=== PATIENT | male | born 1995 | race Two or more races ===

== ENCOUNTER 2024-06-26 03:31 | Emergency (ER) | payer MEDICAID, SELFPAY ==
[2024-06-26 03:32] VITALS: BMI 30.4
[2024-06-26 03:39] VITALS: BP 124/76; PULSE 69; RESP 18; TEMP 36.6; O2SAT 96
--- NOTE | 2024-06-26 03:47 | EDNOTE_ITS ---
ED Abdominal Pain RME/HPI General Chief Complaint: Abdominal Pain Stated complaint: ABD PAIN Time seen by provider: 06/26/24 03:37 Arrival date/time: 06/26/24 03:31 RME / HPI RME / HPI narrative: This section includes all my notes and documentations, including HPI, PE, and ED course. Brian Ramos MD HPI: 28yo male with no significant past medical history presents to the ED for complaints of epigastric and RUQ pain. Patient states he woke up having abdominal pain at 0130 few hours ago, reporting it's been progressively getting worse, so he came in for evaluation. Patient reports associated nausea and vomiting. He denies any diarrhea, fever, chills, dysuria or any other associated symptoms. His last bowel movement was at 2100 last night. He is not on any daily medications. No abdominal PSH. Patient denies any history of similar symptoms. No other complaints reported. ROS: All negative except as documented in HPI. Physical Exam: General: Alert and oriented. No acute distress when remaining still. Eyes: Conjunctivae and lids clear. ENT: No nasal congestion. Neck: Supple. Heart: RRR. Lungs: No respiratory distress. Good air movement. No rhonchi, wheezing, rales. Abdomen: Soft. Epigastric and RUQ tenderness. Normal bowel sounds. No distension. No rebound or guarding. Back: No CVA tenderness. Skin: Warm and dry. Neuro: Alert and oriented X 3. I reviewed all diagnostic test results. My review of the gallbladder US report is cholelithiasis, no signs of cholecystitis. Blood tests unremarkable. At this point, diagnoses include gastritis and cholelithiasis. Treatment here included Zofran and famotidine and Protonix. He felt much better. Recommended outpatient care. Based on my best medical judgment, made decision no further evaluation or treatment indicated at this time. Patient understands and agrees to the discharge instructions customized and printed, see below. Discharge instructions from Dr. Ramos: ?After evaluation, your symptoms are due to stomach ulcer (see attached handout) and gallstones..? There is no emergency such as appendicitis needing emergent surgery. See attached handouts. ?To help heal the ulcer, take Omeprazole 40 mg every morning and Famotidine 40 mg for a week then as needed. ?Zofran for nausea/vomiting.? Clear liquid diet for 24 hours.? Then slowly advance diet as tolerated. ?Avoid food and beverages that can trigger and worsen ulcers.? See attached handout. ?See a private doctor on 06/28/24. To make sure there is no serious intra-abdominal condition, ask for help with more investigation not available here in the ER.? Such as EGD or scoping the stomach, colonoscopy or scoping the colon, and referral to see agency service representative. Ask for help seeing a surgeon to discuss elective surgery. ?Seek immediate medical care with worsening or with any concerns. Brian Ramos MD Related Data Previous Rx's ?Medication ?Instructions ?Recorded Acetaminophen ER * (TYLENOL ER *) 650 mg PO Q8HR PRN P AIN ##30 03/05/17 cephalexin 500 mg capsule (Keflex) 1 cap PO QID #40 ca ps 03/05/17 ibuprofen 600 mg tablet 600 mg PO Q6HR PRN PAIN #30 tabs 03/05/17 azithromycin 250 mg tablet See Rx Instructions PO .COM PLEX #6 01/26/23 (Zithromax) tabs cetirizine 10 mg tablet 10 mg PO QDAY #30 tabs 01/26 loratadine 10 mg tablet 10 mg PO QDAY #30 tabs 07/05 ibuprofen 800 mg tablet 800 mg PO TID PRN pain #30 t abs 07/22/23 famotidine 40 mg tablet 40 mg PO .bedtime #30 tabs 0 06/26/24 omeprazole 40 mg capsule,delayed 40 mg PO QDAY #30 cap s 06/26/24 release ondansetron 4 mg disintegrating 4 mg PO TID PRN nausea and 06/26/24 tablet vomiting 30 days #10 tabs Allergies Allergy/AdvReac Type Severity Reaction Status Date / Time No Known Allergies Allergy Verified 01/26/23 08:18 Review of Systems Review of Systems Systems Reviewed: All systems reviewed, normal except as documented Past Medical History Past Medical History CARDIAC: Negative Congestive Heart Failure RESPIRATORY: Negative Chronic Obstructive Pulmonary Disease (COPD) GENITOURINARY: Negative Renal Disease ENDOCRINE: Negative Diabetes Mellitus Type 1 or Diabetes Mellitus Type 2 Social History SMOKING STATUS: Never smoker ED Exam Narrative Physical exam: As noted in HPI. Course Quality Measures none Orders Category Date Time Status gall bladder Stat Exams 06/26/24 03:48 Completed Amylase Stat Lab 06/26/24 03:55 Completed Bilirubin,Direct Stat Lab 06/26/24 03:55 Completed CBC Stat Lab 06/26/24 03:55 Completed CMP [Comprehensive Metabolic Panel] Stat Lab 06/26/24 03:55 Completed Lipase Stat Lab 06/26/24 03:55 Completed Magnesium Stat Lab 06/26/24 03:55 Completed Famotidine [Pepcid] Med 06/26/24 03:47 Discontinued 40 mg PO X1 ONE Ondansetron Odt [Zofran Odt] Med 06/26/24 03:47 Discontinued 4 mg PO X1 ONE Pantoprazole [Protonix] Med 06/26/24 03:47 Discontinued 40 mg PO X1 ONE Vital Signs Vital signs: Vital Signs Temperature 97.9 F 06/26/24 03:39 Pulse Rate 69 06/26/24 03:39 Respiratory Rate 18 06/26/24 03:39 Blood Pressure 124/76 06/26/24 03:39 Pulse Oximetry (%) 96 06/26/24 03:39 Oxygen Delivery Method Room Air 06/26/24 03:39 Abdominal Pain MDM MDM Narrative MDM Narrative:: Scribe Attestation: 06/26/24 - Estefanía Simpson am scribing for and in the presence of Dr. Ramos. 28yo male with no significant past medical history presents to the ED for complaints of epigastric and RUQ pain. Patient states he woke up having abdominal pain at 0130, reporting it's been progressively getting worse, so he came in for evaluation. Patient reports associated nausea and vomiting. He denies any diarrhea, fever, chills, dysuria or any other associated symptoms. His last bowel movement was at 2100. He is not on any daily medications. No abdominal PSH. Patient denies any history of similar symptoms. No other complaints reported. Patient data External records reviewed:: [facility] previous records (Per chart review, patient has no relevant previous ED visits.) Clinical information provided by:: patient Social determinants that could affect healthcare access:: none Patient has the following chronic illnesses:: none How is presenting disease/condition affected by chronic disease/condition?: no chronic disease Evaluation data The following diagnostics were reviewed and interpreted by me:: lab results and radiology exam(s) Lab and/or radiology exams considered but not ordered:: none Interpretation Summary: Gastritis and cholelithiasis Medications / Prescriptions Medications or Prescriptions considered but not ordered:: none Medication administrations:: Medication Administration History Discontinued Medications Famotidine (Famotidine 20 Mg Tablet) 40 mg PO X1 ONE Stop: 06/26/24 03:48 Last Admin: 06/26/24 03:59 Dose: 40 mg Documented By: NING Ondansetron HCl (Ondansetron Odt 4 Mg Tabrap) 4 mg PO X1 ONE; Protocol Stop: 06/26/24 03:48 Last Admin: 06/26/24 03:59 Dose: 4 mg Documented By: NING Pantoprazole Sodium (Pantoprazole 40 Mg Tablet) 40 mg PO X1 ONE Stop: 06/26/24 03:48 Last Admin: 06/26/24 03:59 Dose: 40 mg Documented By: NING Zoavel and famotidine and Protonix Consultations Consultation(s) initiated? (list below): No Diagnosis Differential diagnosis abdominal pain: acute appendicitis, calculus of kidney, constipation, diverticulitis, endometriosis, gastroenteritis, pancreatitis, small bowel obstruction and other (GERD, gastritis, PUD, biliary colic) Most likely diagnosis given after review of the tests above:: Gastritis and barely colic Admission Indicated Admission indicated?: not indicated Explain why admission is indicated or not indicated:: With significant improvement, there was no indication for admission. Admission Request Was there a request for admission?: No Disposition Plan Disposition Plan: Discharge Discharge Attestation Discharge Attestation: The patient and all family members were given an opportunity to ask questions and understood the discharge instructions. Discharge instructions specifically effects, indications for sooner follow up or return to the emergency department, and the expected course of current diagnosis. Patient condition: Stable Discharge Plan Plan Patient Disposition: HOME (Self Care) Prescriptions/Referrals Prescriptions/Med Rec: New famotidine 40 mg tablet 40 mg PO .bedtime Qty: 30 0RF omeprazole 40 mg capsule,delayed release(DR/EC) 40 mg PO QDAY Qty: 30 0RF ondansetron 4 mg tablet,disintegrating 4 mg PO TID PRN (Reason: nausea and vomiting) 30 Days Qty: 10 0RF No Action Acetaminophen ER * (TYLENOL ER *) 650 MG TABLET.ER 650 mg PO Q8HR PRN (Reason: PAIN) Qty: 30 0RF cephalexin [Keflex] 500 MG capsule 1 cap PO QID Qty: 40 0RF ibuprofen 600 MG tablet 600 mg PO Q6HR PRN (Reason: PAIN) Qty: 30 0RF loratadine 10 mg tablet 10 mg PO QDAY Qty: 30 0RF ibuprofen 800 mg tablet 800 mg PO TID PRN (Reason: pain) Qty: 30 0RF cetirizine 10 mg tablet 10 mg PO QDAY Qty: 30 0RF azithromycin [Zithromax] 250 mg tablet See Rx Instructions .ROUTE .COMPLEX Qty: 6 0RF Rx Instructions: For 250 mg dose pack: take 500 mg today (day 1), then 250 mg for 4 days (days 2-5) Referrals: Herminio Green MD [Primary Care Provider] - In 1 week Problem List Clinical Impression: Stomach ulcer Patient/Caregiver Discharge Instructions Discharge Activity: activity as tolerated Education Materials: ED PEPTIC ULCER vs GASTRITIS Additional Instructions: Discharge instructions from Dr. Ramos: ?After evaluation, your symptoms are due to stomach ulcer (see attached handout) and gallstones..? There is no emergency such as appendicitis needing emergent surgery. See attached handouts. ?To help heal the ulcer, take Omeprazole 40 mg every morning and Famotidine 40 mg for a week then as needed. ?Zofran for nausea/vomiting.? Clear liquid diet for 24 hours.? Then slowly advance diet as tolerated. ?Avoid food and beverages that can trigger and worsen ulcers.? See attached handout. ?See a private doctor on 06/28/24. To make sure there is no serious intra-abdominal condition, ask for help with more investigation not available here in the ER.? Such as EGD or scoping the stomach, colonoscopy or scoping the colon, and referral to see agency service representative. Ask for help seeing a surgeon to discuss elective surgery. ?Seek immediate medical care with worsening or with any concerns. Print Language: Swedish Stand Alone Forms: [facility] Award Info., Patient Portal Info Letter
--- NOTE | 2024-06-26 03:48 | XR_ITS ---
Examination: Abdomen sonogram, Limited Date and time of exam: June 26, 2024 0458 hrs. Indications: Onset right upper abdominal pain today Technique: Real-time persaud scale transabdominal sonographic images of the upper abdomen obtained. Findings: Multiple gallstones Normal gallbladder wall Normal common bile duct 0.5 cm Pancreatic head 2.6 cm Liver 15.5 cm no focal liver lesions Normal hepatopedal portal venous flow Patent IVC Impression: Cholelithiasis, negative for cholecystitis Normal common bile duct
[2024-06-26] MEDS: ONDANSETRON ODT 4 MG TABRAP PO (03:59)
[2024-06-26] MEDS: FAMOTIDINE 20 MG TABLET 40 MG PO (03:59)
[2024-06-26] MEDS: PANTOPRAZOLE 40 MG TABLET PO (03:59)
[2024-06-26 04:53] LABS: Basophils # (Auto) 0.1 Thou/mm3 (0.0-0.2); Basophils % (Auto) 1 % (0-2.5); Eosinophils # (Auto) 0.2 Thou/mm3 (0.0-0.5); Eosinophils % (Auto) 1 % (0-10); Hematocrit 44.6 % (41.0-53.0); Hemoglobin 15.5 g/dL (13.5-16.0); Immature Granulocytes % (Auto) 0 % (0-0); Immature Granulocytes Auto 0.03 Thou/mm3 (0.00-0.00); Lymphocytes # (Auto) 2.5 Thou/mm3 (1.0-4.8); Lymphocytes % (Auto) 20 % (10-50); Mean Corpuscular HGB Conc 34.8 g/dl (31.0-37.0); Mean Corpuscular Hemoglobin 29.8 pg (25.0-35.0); Mean Corpuscular Volume 86 fL (80-100); Monocytes # (Auto) 0.7 Thou/mm3 (0.0-0.8); Monocytes % (Auto) 6 % (0-12); Neutrophils # (Auto) 8.7 Thou/mm3 (1.8-7.7); Neutrophils % (Auto) 72 % (37-80); Nucleated Red Blood Cell % 0 /100 WBC (0); Platelet Count 179 Thou/mm3 (140-440); RDW Standard Deviation 39.9 fL (35.1-43.9); White Blood Count 12.1 Thou/mm3 (3.8-10.6)
[2024-06-26 05:08] LABS: Alanine Aminotransferase 17 U/L (10-49); Albumin, Serum 4.9 gm/dL (3.5-5.0); Alkaline Phosphatase 73 U/L (46-116); Amylase 102 U/L (30-118); Anion Gap 6 (7-16); Aspartate Amino Transferase 21 U/L (0-34); BUN/Creatinine Ratio 21 Ratio (12-20); Bilirubin,Direct 0.2 mg/dL (0.0-0.3); Bilirubin,Total 0.8 mg/dL (0.3-1.2); Blood Urea Nitrogen 17 mg/dL (9-23); Calcium 9.6 mg/dL (8.3-10.6); Calcium (Corrected) 9.6 mg/dL (8.5-10.1); Carbon Dioxide 30.7 mMol/L (20.0-31.0); Chloride 107 mMol/L (98-107); Creatinine (Component) 0.8 mg/dL (0.6-1.3); Estimated Creatinine Clearance 151.7 mL/min (>60); Globulin 2.4 gm/dL (2.3-3.5); Glucose 86 mg/dL (74-106); Lipase 82 U/L (12-53); Magnesium 1.8 mg/dL (1.6-2.6); Osmolality,Calculated 287 (275-295); Potassium 3.9 mMol/L (3.4-5.1); Sodium 144 mMol/L (136-145); Total Protein 7.3 gm/dL (5.7-8.2); eGFR > 60 See Note
[2024-06-26 05:52] VITALS: BP 138/84; PULSE 70; RESP 18; TEMP 36.3; O2SAT 96
--- NOTE | 2024-06-26 06:31 | PRELIM_ITS ---
Ultrasound Abdomen. June 26, 2024 0458 hours Clinical history: RUQ tenderness Technique: Grayscale and color flow images of the abdomen are provided. Hepatic and portal veins were also imaged with color flow images. Comparison: No prior study is available for comparison. Findings: The liver is normal in echogenicity. No intrahepatic biliary ductal dilatation. Multiple stones within the gallbladder. No gallbladder wall thickening or pericholecystic fluid is demonstrated. The common bile duct is normal in caliber at 4.9 mm. No free fluid is demonstrated on the submitted images. The pancreas is unremarkable to the extent visualized. The inferior vena cava to the extent visualized is within normal limits. Impression: Cholelithiasis without evidence of acute cholecystitis. Report Electronically Signed By: Jayesh Mckenzie 06/26/2024 6:31:12 AM [EST]
== END 2024-06-26 05:55 | disposition home or self-care (01) ==
PROVIDERS: Emergency Provider Emergency Medicine; PCP Family Medicine
DX: K25.9 Gastric ulcer, unspecified as acute or chronic, without hemorrhage or perforation (principal); K80.20 Calculus of gallbladder without cholecystitis without obstruction
CPT/HCPCS: 36415; 76705; 80053; 82150; 82248; 83690; 83735; 85025; 99284; Q0162; A9270

== ENCOUNTER 2024-07-19 03:42 | Day surgery (SDC) | payer MEDICAID, SELFPAY ==
[2024-07-19] VITALS (10 sets, daily range): BP systolic 112–160; BP diastolic 64–96; PULSE 60–86; RESP 14–18; TEMP 36.4–36.8; O2SAT 96–100; BMI 30.9
--- NOTE | 2024-07-19 04:11 | PD.EDABDPN ---
ED Abdominal Pain RME/HPI General Chief Complaint: Abdominal Pain Stated complaint: abd pain Time seen by provider: 07/19/24 03:54 Arrival date/time: 07/19/24 03:42 29-year-old male presents to the ED with a 2-hour complaint of right upper quadrant abdominal pain. He was seen in our department approximately 2 weeks ago and diagnosed with cholelithiasis and gastritis. The pain woke him up out of sleep. He has associated nausea and chills but no fever, vomiting, or diarrhea. When questioned about his food choices today, a holiday, he admits to eating 2 slices of pizza as well as ribs, corn, and rice. Source: patient Mode of arrival: ambulatory Limitations: no limitations Related Data Previous Rx's ?Medication ?Instructions ?Recorded Acetaminophen ER * (TYLENOL ER *) 650 mg PO Q8HR PRN PAIN ##30 03/05/17 cephalexin 500 mg capsule (Keflex) 1 cap PO QID #40 caps 03/05/17 ibuprofen 600 mg tablet 600 mg PO Q6HR PRN PAIN #30 tabs 03/05/17 azithromycin 250 mg tablet See Rx Instructions PO .COMPLEX #6 01/26/23 (Zithromax) tabs cetirizine 10 mg tablet 10 mg PO QDAY #30 tabs 01/26/23 loratadine 10 mg tablet 10 mg PO QDAY #30 tabs 07/06/23 ibuprofen 800 mg tablet 800 mg PO TID PRN pain #30 tabs 07/22/23 famotidine 40 mg tablet 40 mg PO .bedtime #30 tabs 06/26/24 omeprazole 40 mg capsule,delayed 40 mg PO QDAY #30 caps 06/26/24 release ondansetron 4 mg disintegrating 4 mg PO TID PRN nausea and 06/26/24 tablet vomiting 30 days #10 tabs Allergies Allergy/AdvReac Type Severity Reaction Status Date / Time No Known Allergies Allergy Verified 07/19/24 03:47 Review of Systems Review of Systems Systems Reviewed: All systems reviewed, normal except as documented Past Medical History Past Medical History CARDIAC: Negative Congestive Heart Failure RESPIRATORY: Negative Chronic Obstructive Pulmonary Disease (COPD) GASTROINTESTINAL: Positive Gall Bladder Disease GENITOURINARY: Negative Renal Disease ENDOCRINE: Negative Diabetes Mellitus Type 1 or Diabetes Mellitus Type 2 Social History SMOKING STATUS: Never smoker ED Exam Narrative Physical exam: 29-year-old male, appears in moderate distress due to right upper quadrant abdominal pain. He is alert and oriented, afebrile. Current BP 117/76, P86, RR 18, T98.3, O2 sat 97% on room air. Lungs are clear, cardiovascular regular rate and rhythm without murmurs, abdomen is soft, bowel sounds are present, mild tenderness left lower quadrant and left upper quadrant, both radiating to the right upper quadrant. Moderate right lower quadrant as well as severe right upper quadrant tenderness to palpation. General Limitations: Present no limitations Course Course Course Narrative: 29-year-old male presents to the ED with a 2-hour complaint of right upper quadrant abdominal pain. He was seen in our department approximately 2 weeks ago and diagnosed with cholelithiasis and gastritis. The pain woke him up out of sleep. He has associated nausea and chills but no fever, vomiting, or diarrhea. When questioned about his food choices today, a holiday, he admits to eating 2 slices of pizza as well as ribs, corn, and rice. 29-year-old male, appears in moderate distress due to right upper quadrant abdominal pain. He is alert and oriented, afebrile. Current BP 117/76, P86, RR 18, T98.3, O2 sat 97% on room air. Lungs are clear, cardiovascular regular rate and rhythm without murmurs, abdomen is soft, bowel sounds are present, mild tenderness left lower quadrant and left upper quadrant, both radiating to the right upper quadrant. Moderate right lower quadrant as well as severe right upper quadrant tenderness to palpation. Labs reveal a white count of 13.0, normal CMP with the exception of a glucose of 122, normal amylase and lipase at 99/51. Urinalysis is negative. Abdominal ultrasound ordered and pending. Care of patient transferred to Dr. Bowers at 6:30 AM. Quality Measures none Orders Category Date Time Status IV [Insert IV] NOW Care 07/19/24 04:17 Active NPO STAT Care 07/19/24 04:17 Active NM HIDA w pharm Stat Exams 07/19/24 06:34 Stop Req US abdomen Stat Exams 07/19/24 04:17 Taken Amylase Stat Lab 07/19/24 05:01 Completed CBC Stat Lab 07/19/24 05:01 Completed Comprehensive Metabolic Panel Stat Lab 07/19/24 05:01 Completed Lipase Stat Lab 07/19/24 05:01 Completed Urinalysis Stat Lab 07/19/24 04:53 Completed Ketorolac Inj [Toradol Inj] Med 07/19/24 04:17 Discontinued 30 mg IVP X1 ONE Ondansetron Inj [Zofran Inj] Med 07/19/24 04:22 Discontinued 4 mg IV X1 ONE Vital Signs Vital signs: Vital Signs Temperature 98.3 F 07/19/24 03:46 Pulse Rate 86 07/19/24 03:46 Respiratory Rate 18 07/19/24 03:46 Blood Pressure 117/76 07/19/24 03:46 Pulse Oximetry (%) 97 07/19/24 03:46 Oxygen Delivery Method Room Air 07/19/24 03:46 Abdominal Pain MDM Patient data External records reviewed:: [facility] previous records Clinical information provided by:: patient Social determinants that could affect healthcare access:: none Patient has the following chronic illnesses:: Gallbladder disease/cholelithiasis How is presenting disease/condition affected by chronic disease/condition?: caused by Evaluation data The following diagnostics were reviewed and interpreted by me:: lab results and radiology exam(s) Lab and/or radiology exams considered but not ordered:: None Interpretation Summary: See patient course. Medications / Prescriptions Medications or Prescriptions considered but not ordered:: None Medication administrations:: Medication Administration History Discontinued Medications Ketorolac Tromethamine (Ketorolac Inj 30 Mg/Ml Vial) 30 mg IVP X1 ONE Stop: 07/19/24 04:18 Last Admin: 07/19/24 05:01 Dose: 30 mg Documented By: DREW Ondansetron HCl (Ondansetron Inj 2 Mg/Ml Inj 2 Ml) 4 mg IV X1 ONE; Protocol Stop: 07/19/24 04:23 Last Admin: 07/19/24 05:03 Dose: 4 mg Documented By: DREW Toradol 30 mg IVP, Zofran 4 mg IV. Consultations Consultation(s) initiated? (list below): Yes Diagnosis Differential diagnosis abdominal pain: abdominal pain, pancreatitis and other (Cholelithiasis, cholecystitis, ascending cholangitis) Most likely diagnosis given after review of the tests above:: Cholelithiasis with cholecystitis Discharge Plan Prescriptions/Referrals Prescriptions/Med Rec: No Action Acetaminophen ER * (TYLENOL ER *) 650 MG TABLET.ER 650 mg PO Q8HR PRN (Reason: PAIN) Qty: 30 0RF cephalexin [Keflex] 500 MG capsule 1 cap PO QID Qty: 40 0RF ibuprofen 600 MG tablet 600 mg PO Q6HR PRN (Reason: PAIN) Qty: 30 0RF loratadine 10 mg tablet 10 mg PO QDAY Qty: 30 0RF ibuprofen 800 mg tablet 800 mg PO TID PRN (Reason: pain) Qty: 30 0RF cetirizine 10 mg tablet 10 mg PO QDAY Qty: 30 0RF azithromycin [Zithromax] 250 mg tablet See Rx Instructions .ROUTE .COMPLEX Qty: 6 0RF Rx Instructions: For 250 mg dose pack: take 500 mg today (day 1), then 250 mg for 4 days (days 2-5) famotidine 40 mg tablet 40 mg PO .bedtime Qty: 30 0RF omeprazole 40 mg capsule,delayed release(DR/EC) 40 mg PO QDAY Qty: 30 0RF ondansetron 4 mg tablet,disintegrating 4 mg PO TID PRN (Reason: nausea and vomiting) 30 Days Qty: 10 0RF Referrals: Milena Gibbons FNP [Primary Care Provider] - In 1 week Patient/Caregiver Discharge Instructions Print Language: Cook Islander
--- NOTE | 2024-07-19 04:17 | XR_ITS ---
Examination: Abdomen sonogram, complete Date and time of exam: July 19, 2024 at 1659 hours INDICATIONS: Right upper abdominal pain beginning one month ago, history gallstones. Technique: Multiple real-time grayscale transabdominal sonographic images of the abdomen have been obtained. Findings: Multiple gallstones Gallbladder wall 0.37 cm no edema Common bile duct 0.4 cm Pancreatic head 2.7 cm Aorta nonenlarged Hepatomegaly 18 cm no focal liver lesions Normal hepatopedal portal venous flow Patent IVC Right kidney 11.4 point centimeters renal cortex 2.2 cm Left kidney 11.6 cm cortex 1.8 cm Mild bilateral renal parenchymal scar formation Spleen 11.7 cm IMPRESSION: Cholelithiasis Gallbladder wall 0.37 cm with no edema, clinical correlation is advised Normal common bile duct Hepatomegaly no focal liver lesions
[2024-07-19] MEDS: KETOROLAC INJ 30 MG/ML VIAL IVP (05:01)
[2024-07-19] MEDS: ONDANSETRON INJ 2 MG/ML INJ 2 ML 4 MG IV (05:03)
[2024-07-19 05:23] LABS: Basophils # (Auto) 0.1 Thou/mm3 (0.0-0.2); Basophils % (Auto) 1 % (0-2.5); Eosinophils # (Auto) 0.2 Thou/mm3 (0.0-0.5); Eosinophils % (Auto) 1 % (0-10); Hematocrit 47.1 % (41.0-53.0); Hemoglobin 16.8 g/dL (13.5-16.0); Immature Granulocytes % (Auto) 0 % (0-0); Immature Granulocytes Auto 0.05 Thou/mm3 (0.00-0.00); Lymphocytes % (Auto) 23 % (10-50); Mean Corpuscular HGB Conc 35.7 g/dl (31.0-37.0); Mean Corpuscular Hemoglobin 30.5 pg (25.0-35.0); Mean Corpuscular Volume 86 fL (80-100); Monocytes # (Auto) 0.6 Thou/mm3 (0.0-0.8); Monocytes % (Auto) 5 % (0-12); Neutrophils % (Auto) 69 % (37-80); Nucleated Red Blood Cell % 0 /100 WBC (0); Platelet Count 215 Thou/mm3 (140-440); RDW Standard Deviation 39.8 fL (35.1-43.9)
[2024-07-19 05:24] LABS: Collection Type, Urine Clean Catch; Squamous Epithelial Cell,Urine 0 /hpf (0-5)
[2024-07-19 05:29] LABS: Bilirubin,Urine Negative (Negative); Blood,Urine Negative (Negative); Clarity,Urine Clear (Clear/Hazy); Color,Urine Lt-Yellow (Lt Yel-Yel); Glucose, Urine Negative (Negative); Ketones,Urine Negative (Negative); Leukocyte Esterase,Urine Negative (Negative); Nitrite,Urine Negative (Negative); PH,Urine 6.5 (5.0-7.0); Protein,Urine Negative (Neg - Trace); RBC,Urine 1 /hpf (0-3); Urobilinogen,Urine Negative mg/dL (0.0-1.0); WBC,Urine 1 /hpf (0-5)
--- NOTE | 2024-07-19 05:41 | PRELIM_ITS ---
Ultrasound Abdomen. July 19, 2024 at 0429 hours Clinical history: Right upper quadrant abdominal pain. Technique: Grayscale and color flow images of the abdomen are provided. Hepatic and portal veins were also imaged with color flow images. Comparison: No prior study is available for comparison. Findings: Common bile duct is 4 mm in diameter. Main portal vein is antegrade. Gallbladder wall is 3.7 mm thick. Pancreas is unremarkable. Abdominal aorta and inferior vena cava are normal. Hepatic veins are patent. Right kidney is 11.4 cm long. No hydronephrosis mass or calculus bilaterally. Left kidney is 11.6 cm long. The spleen is 11.7 cm long. Patient was tender over the gallbladder. Cholelithiasis. Impression: Cholelithiasis with mild gallbladder wall thickening, concern for cholecystitis. Discussion Details: Results verbally communicated to : Dr. Chambers at 05:29 AM 07/19/2024 Report Electronically Signed By: Abhilash Tnag 07/19/2024 5:41:27 AM [EST]
[2024-07-19 05:44] LABS: Alanine Aminotransferase 23 U/L (10-49); Albumin/Globulin Ratio 1.8 (1.2-2.2); Alkaline Phosphatase 79 U/L (46-116); Amylase 99 U/L (30-118); Anion Gap 7 (7-16); Aspartate Amino Transferase 20 U/L (0-34); BUN/Creatinine Ratio 18 Ratio (12-20); Bilirubin,Total 0.9 mg/dL (0.3-1.2); Blood Urea Nitrogen 16 mg/dL (9-23); Calcium 8.9 mg/dL (8.3-10.6); Calcium (Corrected) 8.9 mg/dL (8.5-10.1); Carbon Dioxide 25.9 mMol/L (20.0-31.0); Chloride 107 mMol/L (98-107); Creatinine (Component) 0.9 mg/dL (0.6-1.3); Estimated Creatinine Clearance 134.6 mL/min (>60); Globulin 2.8 gm/dL (2.3-3.5); Glucose 122 mg/dL (74-106); Lipase 51 U/L (12-53); Osmolality,Calculated 281 (275-295); Potassium 3.7 mMol/L (3.4-5.1); Sodium 140 mMol/L (136-145); Total Protein 7.8 gm/dL (5.7-8.2); eGFR > 60 See Note
--- NOTE | 2024-07-19 06:33 | PD.EDADDENDU ---
Emergency Room Addendum Addendum Narrative: 0600: Care assumed from Selam Chambers. Past medical, surgical, social and family history reviewed. Vitals and home medications reviewed. I will assume the care of the patient at this time, pending remainder of diagnostic tests and final disposition. Please refer to the emergency department record for history and examination from initial visit.? Physical exam by me shows patient under no acute distress at this time. 0639: Discussed test HPI, PMHx, lab, radiology results and/or management with surgeon Dr. Kan. He will come and examine the patient. 0900: Discussed test HPI, PMHx, lab, radiology results and/or management with surgeon Dr. Kan. After he examined the patient, Dr. Kan decided to take the patient to the OR. Diagnoses: -Acute cholecystitis -RUQ abdominal pain RADIOLOGY Procedure(s): US abdomen Accession Number(s): [id number] cc: Rupert Hayes MD; Selam Chambers PA-C; Milena Gibbons~ Examination: Abdomen sonogram, complete Date and time of exam: July 19, 2024 at 1659 hours INDICATIONS: Right upper abdominal pain beginning one month ago, history gallstones. Technique: Multiple real-time grayscale transabdominal sonographic images of the abdomen have been obtained. Findings: Multiple gallstones Gallbladder wall 0.37 cm no edema Common bile duct 0.4 cm Pancreatic head 2.7 cm Aorta nonenlarged Hepatomegaly 18 cm no focal liver lesions Normal hepatopedal portal venous flow Patent IVC Right kidney 11.4 point centimeters renal cortex 2.2 cm Left kidney 11.6 cm cortex 1.8 cm Mild bilateral renal parenchymal scar formation Spleen 11.7 cm IMPRESSION: Cholelithiasis Gallbladder wall 0.37 cm with no edema, clinical correlation is advised Normal common bile duct Hepatomegaly no focal liver lesions Dictated By: Rupert Hayes MD
--- NOTE | 2024-07-19 07:45 | PC.NURSE ---
ASSUME CARE FOR THIS PT AND GOT REPORT FROM EDDI MASCORRO, PT IN NO ACUTE PAIN OR DISTRESS, GCS 15 A&OX4, PT GIVEN UPDATE ON PLAN OF CARE.
[2024-07-19] MEDS: SODIUM CHLORIDE 0.9% 1000 ML 1,000 ML 100 ML IV (09:46)
[2024-07-19] MEDS: PIPER/TAZO 3.375 GM PREMIX 3.375 GM/50 ML BAG IV (09:47)
--- NOTE | 2024-07-19 11:30 | ESHP_ITS ---
HPI Date of Admission 07/19/2024 Chief Complaint Chief Complaint: Patient is admitted with a diagnosis of acute cholecystitis with gallstones HPI History of present illness revealed that the patient was in his usual health until around 1130 last night when he experienced sudden pain in the right upper quadrant radiating to the back. He denied any nausea. Patient had a similar pain in June of this year and he came to the emergency room and was found to have gallstones but he got better and discharged. This time the pain was very strong. Since June patient has had intermittent pain but never severe enough to go to the hospital. Patient denies any history of fever chills or jaundice. His past medical history is essentially unremarkable. Past Medical History Past Medical History CARDIAC: Negative Congestive Heart Failure RESPIRATORY: Negative Chronic Obstructive Pulmonary Disease (COPD) GASTROINTESTINAL: Positive Gall Bladder Disease GENITOURINARY: Negative Renal Disease ENDOCRINE: Negative Diabetes Mellitus Type 1 or Diabetes Mellitus Type 2 Social History SMOKING STATUS: Never smoker Meds Home Medications and Allergies Allergies Allergy/AdvReac Type Severity Reaction Status Date / Time No Known Allergies Allergy Verified 07/19/24 03:47 Exam Vital Signs Temp Pulse Resp BP Pulse Ox O2 Del Method 97.6 F 63 17 112/67 96 Room Air 07/19/24 07:37 07/19/24 07:37 07/19/24 07:37 07/19/24 07:37 07/19/24 07:37 07/19/24 07:37 Narrative Exam Physical examination revealed a well-built well-nourished male who is 5 foot 8 inches tall weighing 203 pounds with BMI of 30.9 his vital signs are normal Routine Cardiovascular Exam Comments: Sinus rhythm Routine Abdominal Exam Comments: Examination of the abdomen showed tenderness for the right upper quadrant on deep palpation. Patient has received narcotic when I examined him and therefore his pain was less. Routine Rectal Exam Comments: Deferred Routine Exam Comments: Deferred Results Results: Laboratory Laboratory Narrative: Patient's laboratory workup showed elevated WBC with 13,000. Results: Imaging Imaging narrative: Ultrasound of the gallbladder showed gallstones with some thickening of the gallbladder wall Assessment & Plan Additional Assessment Additional comments: Impression: Cholelithiasis with acute cholecystitis Plan Plan: Patient has come to the emergency room twice with abdominal pain and he has a leukocytosis. Because of the examination which still showed some t enderness I advised the patient to undergo laparoscopic cholecystectomy. The procedure was explained to him in detail including potential complications like bowel injury or bile duct injury requiring further surgery. Patient also was told about the need for open cholecystectomy in case the laparoscopic approach fails. He is agreeable. We have started him on Zosyn and will be taken to the operating room this morning as an urgent case Quality Measures Quality Measures none
--- NOTE | 2024-07-19 12:54 | SUR.PHASEI ---
pt arrived to PACU via gurney restless , breathing unlabored, dressing to abdomen clean, dry, and intact, report from Billy MASCORRO and Marc NOLAN
[2024-07-19] MEDS: fentaNYL CIT INJ 50 mCg/ML AMP 2ML IV (13:02)
--- NOTE | 2024-07-19 13:21 | SUR.PHASEI ---
1321 Report received from Liyah Malone RN
--- NOTE | 2024-07-19 13:21 | SUR.PHASEI ---
Report to Liyah Huang RN
--- NOTE | 2024-07-19 13:37 | PD.SUROPNT ---
Date of Procedure 07/19/24 Pre Op Diagnosis Symptomatic cholelithiasis with early acute cholecystitis Post Op Diagnosis Same Procedure Laparoscopic cholecystectomy Findings Patient is found to have a stone stuck at the cystic duct but the gallbladder was not distended and had multiple small stones Procedure Description After endotracheal anesthesia was given the patient was placed in supine position and the abdomen was prepped with chloroprep solution and draped in a sterile manner. After time out was performed I injected a few cc of of half percent Marcaine with epinephrine below the umbilicus and I made an incision for about 3 cm in length. The fascia was cleaned and Veress needle was inserted to create a pneumoperitoneum up to 15 mmHg. Then introduced a 12 mm trocar and a 10 mm camera through the fascia and I inspected the intra-abdominal organs as well as the gallbladder and the liver. Another 5 mm trocar was inserted in the epigastric region under direct vision after injecting some local anesthesia. At this time the patient was kept in reverse Trendelenburg position with the left lateral tilt. The third 5 mm trocar was inserted over the mid axillary line under direct vision and a Issac and Geoliva grasper was used to hold the fundus of the gallbladder. The gallbladder was collapsed and injected 35 cc of saline to enlarge the gallbladder and to look for the contour especially at the neck. The retraction was carried out by the special events assistant moving the fundus of the gallbladder towards the right shoulder of the patient to create enough traction. I placed a another 5 mm trocar in the midaxillary line just lateral to the rectus muscle under direct vision. I used a fenestrated grasper to retract the neck of the gallbladder laterally towards the patient's right hip. The Calot's triangle was exposed and I achieved the critical view of safety as follows: I dissected out the fatty tissue from the hepatocystic triangle and cleared this area. I also dissected inferior and posterior to the gallbladder to identify the cystic duct and the gallbladder wall. Then superiorly I dissected along the cystic plate up to lower one third third of the gallbladder to lift the gallbladder from the liver. At this time I confirmed that only 2 structures entering the gallbladder were cystic artery and the cystic duct. The common duct was seen distally but no dissection was carried out around the duct. I did not see any need for operative cholangiogram in this patient. The cystic duct was clipped doubly and then divided and cystic artery was similarly dealt with. Then the gallbladder was removed from the liver bed using Harmonic gerri to control the small blood vessels as the dissection proceeded. Then the gallbladder was from the liver bed completely and delivered through the umbilical port using an Endopouch. The liver bed was coagulated with cautery to obtain satisfactory hemostasis. The trocars were pulled out from the abdominal cavity and the fascia at the umbilical incision was closed with interrupted 0 Ethibond. Subcutaneous tissues was closed with 3-0 chromic and injected a few cc of half percent Marcaine with epinephrine and the skin was closed with interrupted 4-0 nylon stitches at all the trocar sites. Dressing was applied with 2 x 2 and Tegaderm. Patient tolerated the procedure well and returned to recovery room in stable condition. Anesthesia GETA Pathology / specimen Other (Gallbladder and the stones) IVF Infused 700 Estimated Blood Loss 20 Surgeon Nilton Kan MD Surgical Staff Operation Date: 07/19/24 11:15 Case Staff [employer]: Wilton Hall RNscrap metal processing worker: Ashkan Steven
--- NOTE | 2024-07-19 14:20 | SUR.PHASEII ---
1420 Patient meets discharge criteria from recovery, awake and alert, breathing unlabored, vital signs stable, denies pain and nausea, dressing intact; no bleeding noted, patient assisted with dressing into his clothing by his , discharge instructions given to patient and patients , signed discharge instructions. Patient given all his belongings prior to discharge, transported via wheelchair and left in a private vehicle.
== END 2024-07-19 14:20 | disposition home or self-care (01) ==
LOC: SERX 09:21 → S2EX 09:24
PROVIDERS: Physician Assistant; Emergency Provider Family Medicine; PCP Nurse Practitioner Family; Referring Provider Surgery; Visit Provider Surgery
PROC: 0FT44ZZ Resection of Gallbladder, Percutaneous Endoscopic Approach (ICD-10-PCS; CPT 47562; principal; 2024-07-19 11:00)
DX: K80.12 Calculus of gallbladder with acute and chronic cholecystitis without obstruction (principal)
CPT/HCPCS: 47562; 36415; 76700; 80053; 81001; 82150; 83690; 85025; 96374; 99285; A4217; A4649; J1100; J1885; J2250; J2405; J2543; J2704; J3010; J3490; J7030

== ENCOUNTER 2024-08-15 17:16 | Emergency (ER) | payer MEDICAID, SELFPAY ==
[2024-08-15 17:17] VITALS: BMI 31.9
[2024-08-15 17:34] VITALS: BP 118/74; PULSE 59; RESP 18; TEMP 36.8; O2SAT 97
--- NOTE | 2024-08-15 17:43 | PD.EDWOUND ---
ED Wound/Laceration-RME/HPI General Chief Complaint: Recheck/Abnormal Lab/Rx Stated Complaint: SURGICAL INCISION INFECTION Time Seen by Provider: 08/15/24 17:36 Source: patient Arrival date/time: 08/15/24 17:16 This is a case of 29-year-old male who had laparoscopic cholecystectomy July 19 and had a surgical incision on the umbilical area patient was fine until 5 days prior to arrival in the emergency room when the patient surgical wound open now with redness and discharge patient was seen by the general surgeon and was given Bactrim due to worsening of the symptoms thus patient decided to start consult here in the emergency room Limitations: no limitations Related Data Previous Rx's ?Medication ?Instructions ?Recorded Acetaminophen ER * (TYLENOL ER *) 650 mg PO Q8HR PRN PAIN ##30 03/05/17 ibuprofen 600 mg tablet 600 mg PO Q6HR PRN PAIN #30 tabs 03/05/17 cetirizine 10 mg tablet 10 mg PO QDAY #30 tabs 01/26/23 loratadine 10 mg tablet 10 mg PO QDAY #30 tabs 07/06/23 famotidine 40 mg tablet 40 mg PO .bedtime #30 tabs 06/26/24 omeprazole 40 mg capsule,delayed 40 mg PO QDAY #30 caps 06/26/24 release hydrocodone 5 mg-acetaminophen 325 1 tab PO Q6H #20 tabs 07/19/24 mg tablet clindamycin HCl 300 mg capsule 300 mg PO Q8H 10 days #30 caps 08/15/24 doxycycline monohydrate 100 mg 100 mg PO BID 10 days #20 caps 08/15/24 capsule mupirocin 2 % topical ointment 1 applic topical BID #15 grams 08/15/24 Allergies Allergy/AdvReac Type Severity Reaction Status Date / Time No Known Allergies Allergy Verified 07/19/24 03:47 Review of Systems Review of Systems Systems Reviewed: All systems reviewed, normal except as documented Constitutional Constitutional: Reports system reviewed and no additional complaints, except as documented Cardiovascular Cardiovascular: Reports system reviewed and no additional complaints, except as documented Respiratory Respiratory: Reports system reviewed and no additional complaints, except as documented Gastrointestinal Gastrointestinal: Reports system reviewed and no additional complaints, except as documented, Reports as per HPI, Denies abdominal pain, Denies nausea and Denies vomiting Genitourinary Genitourinary: Reports system reviewed and no additional complaints, except as documented and Reports as per HPI Musculoskeletal Musculoskeletal: Reports system reviewed and no additional complaints, except as documented and Reports as per HPI Neurologic Neurologic: Reports system reviewed and no additional complaints, except as documented and Reports as per HPI Past Medical History Past Medical History CARDIAC: Negative Congestive Heart Failure RESPIRATORY: Negative Chronic Obstructive Pulmonary Disease (COPD) GASTROINTESTINAL: Positive Gall Bladder Disease GENITOURINARY: Negative Renal Disease ENDOCRINE: Negative Diabetes Mellitus Type 1 or Diabetes Mellitus Type 2 Social History SMOKING STATUS: Current some day smoker ED Exam General Limitations: Present no limitations General appearance: Present alert and in no apparent distress; Absent appears intoxicated Head Head exam: Present atraumatic Eye Eye exam: Present normal appearance, PERRL and EOMI ENT ENT exam: Present normal exam, normal oropharynx and mucous membranes moist Neck Neck exam: Present normal inspection, full ROM and trachea midline; Absent tenderness, meningismus, lymphadenopathy or thyromegaly Chest Chest inspection: Present normal inspection and symmetric chest wall rise Respiratory Respiratory exam: Present normal lung sounds bilaterally; Absent respiratory distress, wheezes, stridor, accessory muscle use or prolonged expiratory phase Cardiovascular Cardiovascular exam: Present regular rate, normal rhythm and normal heart sounds Abdominal Exam Abdominal exam: Present soft, normal bowel sounds and other (Noted a open wound on the umbilical area possible wound dehiscence no abscess no cellulitis mild to moderate tenderness on palpation with yellowish discharge no swelling but with redness); Absent distention, tenderness, guarding, rebound, rigidity, diminished bowel sounds or hyperactive bowel sounds Extremities Exam Extremities exam: Present normal inspection and full ROM Back Exam Back exam: Present normal inspection and full ROM Neurological Exam Neurological exam: Present alert, oriented X3 and CN II-XII intact Psychiatric Psychiatric exam: Present normal affect and normal mood Skin Skin exam: Present warm, dry, intact, normal color and other (Please see my abdominal exam) Course Quality Measures none Orders Category Date Time Status Wound Care X1 Care 08/15/24 17:39 Active cefTRIAXone [Rocephin] 1,000 mg Med 08/15/24 17:39 Discontinued Lidocaine 1% 20 ml [Xylocaine 1% 20 ML] 2.1 ml IM X1 Vital Signs Vital signs: Vital Signs Temperature 98.3 F 08/15/24 17:34 Pulse Rate 59 L 08/15/24 17:34 Respiratory Rate 18 08/15/24 17:34 Blood Pressure 118/74 08/15/24 17:34 Pulse Oximetry (%) 97 08/15/24 17:34 Oxygen Delivery Method Room Air 08/15/24 17:34 Oxygen saturation 97% on room air Wound / Laceration MDM Narrative MDM Narrative:: This is a case of 29-year-old male who had laparoscopic cholecystectomy July 19 and had a surgical incision on the umbilical area patient was fine until 5 days prior to arrival in the emergency room when the patient surgical wound open now with redness and discharge patient was seen by the general surgeon and was given Bactrim due to worsening of the symptoms thus patient decided to start consult here in the emergency room physical examination abdominal exam is benign nonsurgical no guarding no rebound no rigidity patient noted to have open wound on the umbilical area possible wound dehiscence no abscess no cellulitis with yellowish discharge tender to touch wound was cleaned with normal saline and Betadine and apply triple antibiotic and cover nonadherent gauze patient was given ceftriaxone IM for infection and was prescribed with doxycycline and clindamycin I discussed with the patient to stop the Bactrim patient will follow-up with PCP in 2 days for wound check and he will return to the general surgeon for further evaluation and treatment Patient was discharged with comfortable condition walking with stable gait. Patient verbalized no further complains explained diagnosis and answered patient question. Patient is comfortable with the proposed management plan including the need to follow up with his/her primary care physician and any specialist if applicable Discussed patient for any urgent condition or worsening sx, He/She needed to go to emergency room immediately or call 911. Patient acknowledge the responsibility to follow up as instructed and to monitor her/his symptoms. For any persistence of the symptoms for more than 3-5 days return precaution advised. Discussed the result of the test and was given printed discharge instruction Patient data External records reviewed:: [facility] previous records Clinical information provided by:: patient Social determinants that could affect healthcare access:: none Patient has the following chronic illnesses:: None How is presenting disease/condition affected by chronic disease/condition?: no chronic disease Evaluation data The following diagnostics were reviewed and interpreted by me:: other (specify) (None) Lab and/or radiology exams considered but not ordered:: None Interpretation Summary: None Medications / Prescriptions Medications or Prescriptions considered but not ordered:: Given Medication administrations:: Medication Administration History Discontinued Medications Ceftriaxone Sodium 1,000 mg/ (Lidocaine HCl 2.1 ml) 0 mg IM X1 ONE Stop: 08/15/24 17:40 Given Consultations Consultation(s) initiated? (list below): No Diagnosis Wound Differential Diagnosis: abscess and other (Cellulitis wound dehiscence) Most likely diagnosis given after review of the tests above:: Surgical wound infection Admission Indicated Admission indicated?: not indicated Explain why admission is indicated or not indicated:: Not indicated Admission Request Was there a request for admission?: No Admission Attestation Admission request attestation: Not indicated Disposition Plan Disposition Plan: Discharge Discharge Attestation Discharge Attestation: The patient and all family members were given an opportunity to ask questions and understood the discharge instructions. Discharge instructions specifically effects, indications for sooner follow up or return to the emergency department, and the expected course of current diagnosis. Patient condition: Stable Discharge Plan Plan Patient Disposition: HOME (Self Care) Prescriptions/Referrals Prescriptions/Med Rec: New clindamycin HCl 300 mg capsule 300 mg PO Q8H 10 Days Qty: 30 0RF doxycycline monohydrate 100 mg capsule 100 mg PO BID 10 Days Qty: 20 0RF mupirocin 2 % ointment 1 applic topical BID Qty: 15 0RF No Action Acetaminophen ER * (TYLENOL ER *) 650 MG TABLET.ER 650 mg PO Q8HR PRN (Reason: PAIN) Qty: 30 0RF ibuprofen 600 MG tablet 600 mg PO Q6HR PRN (Reason: PAIN) Qty: 30 0RF loratadine 10 mg tablet 10 mg PO QDAY Qty: 30 0RF cetirizine 10 mg tablet 10 mg PO QDAY Qty: 30 0RF famotidine 40 mg tablet 40 mg PO .bedtime Qty: 30 0RF omeprazole 40 mg capsule,delayed release(DR/EC) 40 mg PO QDAY Qty: 30 0RF hydrocodone-acetaminophen 5-325 mg tablet 1 tab PO Q6H MDD 4 Qty: 20 0RF Problem List Clinical Impression: Infected surgical wound Patient/Caregiver Discharge Instructions Education Materials: Preventing Surgical Site Infections, ED Post Op Wound Check, Infection Additional Instructions: Follow-up with your primary care physician in 2 days for reevaluation follow-up with your general surgeon tomorrow for reevaluation and wound check for any worsening symptoms such as redness swelling discharge from the wound pain fever chills return to the emergency room immediately or call 911 wound care daily is advised take your antibiotic and stop Bactrim from the previous provider advised finish the course of antibiotic Print Language: Romanian Stand Alone Forms: Carmita Award Info., Patient Portal Info Letter PA/HEAD OPERATOR Supervising Physician PA/HEAD OPERATOR Supervising Physician: dr taylor
[2024-08-15] MEDS: cefTRIAXone 1,000 MG, LIDOCAINE 1% 20 ML 2.1 ML IM (17:55)
== END 2024-08-15 18:06 | disposition home or self-care (01) ==
PROVIDERS: Emergency Provider Family Medicine; PCP Family Medicine
DX: T81.41XA Infection following a procedure, superficial incisional surgical site, initial encounter (principal)
CPT/HCPCS: 96372; 99283; J0696; J3490